=== PATIENT | male | born 1955 | race Caucasian/White ===

== ENCOUNTER 2016-10-13 12:34 | Inpatient (IN) | payer OTHER ==
--- NOTE | ~2016-10-13 | CN ---
Consultation Report [place] [id number] [facility] [place]. [address] NAME: AD MITCHELL : 59 STATUS : ADM IN [facility]#: [id number] AGE: 61 ADM/REG DATE : 10/13/16 MR#: [id number] REPORT SERV DATE: 10/13/16 DICTATED BY: MANOHAR PATIÑO DATE: 10/13/16 REPORT STATUS : Draft TRANSCRIBED BY: MODL DATE: 10/13/16 CARDIOLOGY CONSULTATION DATE OF CONSULTATION: 10/13/2016 REASON FOR CONSULTATION: Pericardial effusion. HISTORY OF PRESENT ILLNESS: Mr. Mitchell is a 61-year-old male with hypertension and diabetes mellitus, who presented to the ER with several weeks of worsening precordial chest pain, cough, and low-grade fevers. These symptoms are following a "tick bite" that occurred several weeks ago. He has been on doxycycline after being seen in a local urgent care clinic. He notes that his chest pain is nearly continuous and worse with certain position changes. This also exacerbates his cough. His cough has been nonproductive. He denies having any symptoms of exertional angina. He does have some constitutional symptoms, generalized fatigue, and malaise. He has had no palpitations or syncope. He denies orthopnea/PND. He does have some mild ankle edema. On arrival to the ER, he had sinus tachycardia at 100 beats per minute and a D-dimer was abnormal. A CT of the chest showed moderate pericardial and pleural effusions with no pulmonary embolism and a normal thoracic aorta. He is being admitted to the Hospitalist Service for further evaluation and management. An echocardiogram has been performed, but is currently pending review. REVIEW OF SYSTEMS: Pertinent positives and negatives are as outlined above, all others negative. PAST MEDICAL HISTORY: 1. Hypertension. 2. Diabetes mellitus type 2. CURRENT MEDICATIONS: 1. Lotrel 10/40 mg daily. 2. Aspirin 81 mg daily. 3. Tessalon Perles. 4. Doxycycline since 10/07/2016. 5. Glipizide as directed. 6. Jentadueto twice daily. 7. Actos 30 mg daily. ALLERGIES: NO KNOWN DRUG ALLERGIES. SOCIAL HISTORY: He does not use tobacco products, consume alcohol, or illegal drugs. FAMILY HISTORY: No significant family history of premature CAD, cardiomyopathy, or sudden . Consultation Report [facility] [address] [facility] [place]. [address] NAME: AD MITCHELL : 59 STATUS : ADM IN [facility]#: [id number] AGE: 61 ADM/REG DATE : 10/13/16 MR#: [id number] REPORT SERV DATE: 10/13/16 DICTATED BY: MANOHAR PATIÑO DATE: 10/13/16 REPORT STATUS : Draft TRANSCRIBED BY: MODAkbar DATE: 10/13/16 PHYSICAL EXAMINATION: VITALS: Temperature is 100, pulse is 100, respirations 18, and blood pressure is 130/70. MENTAL STATUS: Awake, alert, and oriented x3. PSYCH: Euthymic, normal affect. GENERAL: Well appearing and in no distress. HEENT: Sclerae anicteric, mucous membranes moist and without lesions. NECK: No jugular venous distention. No hepatojugular reflux, carotid upstrokes 2+ and symmetric, there are no carotid or subclavian bruit. LUNGS: Clear to auscultation without wheezes, crackles, or rales. CARDIOVASCULAR: Regular with normal S1 and S2, no murmurs, no S3 or S4, no parasternal lift, PMI is nondisplaced and nonsustained. ABDOMEN: Soft and nontender. Bowel sounds positive and normoactive. No hepatomegaly, no masses, no abdominal bruit. PULSES: Radial and dorsalis pedis pulses 2+ and symmetric. EXTREMITIES: Warm with trivial bilateral ankle edema. SKIN: No clubbing or cyanosis, no rashes or lesions. IMPRESSION: 1. Pleuropericarditis. 2. Febrile illness. 3. Cough with dyspnea. 4. Chest pain secondary to pleuropericarditis. 5. Hypertension. 6. Diabetes mellitus type 2. PLAN: Mr. Mitchell appears to have pleuropericarditis in the setting of a febrile illness for the past several weeks following a "tick bite." He is on doxycycline and being seen by Infectious Disease. An echocardiogram has been performed to follow up his pericardial effusion seen on CTA chest, but that is currently pending for review. At this time, recommend proceeding with NSAIDs for pleuropericarditis and we give him Toradol for immediate relief tonight and then twice daily naproxen with GI prophylaxis on pantoprazole. Followup etiology of his current findings with his Internal Medicine and Infectious Disease evaluation that is ongoing. We will follow with you. SHYANNE/KATI Manohar Patiño M.D. / [id number] CC: Christoph Juan II, MD Consultation Report [address] [address] NAME: AD MITCHELL : 59 STATUS : ADM IN PAT#: [id number] AGE: 61 ADM/REG DATE : 10/13/16 MR#: [id number] REPORT SERV DATE: 10/13/16 DICTATED BY: MANOHAR PATIÑO. DATE: 10/13/16 REPORT STATUS : Draft TRANSCRIBED BY: KATI DATE: 10/13/16 Khang Hale M.D.
--- NOTE | ~2016-10-13 | DS ---
Discharge Summary [facility] [address] [place]. [address] NAME: AD MITCHELL : 59 STATUS : ADM IN [facility]#: [id number] AGE: 61 ADM/REG DATE : 10/13/16 MR#: [id number] REPORT SERV DATE: 10/17/16 DICTATED BY: MICKEY DICKEY II DATE: 10/16/16 REPORT STATUS : Draft TRANSCRIBED BY: MODL DATE: 10/16/16 ADMISSION DATE: 10/13/2016 DISCHARGE DATE: 10/16/2016 DISCHARGE DIAGNOSES: 1. Pleural pericarditis of uncertain etiology. 2. Leukocytosis and fever, meeting criteria for sepsis, though no infectious etiology found and also possibly inflammatory. 3. Anemia with elevated ferritin. 4. Diabetes mellitus, type 2. 5. Hypertension. CONSULTS: 1. Dr. Mcgowan with Cardiology. 2. Dr. Vidal with Infectious Disease. BRIEF HISTORY OF PRESENT ILLNESS: The patient is a 61-year-old male with the above history, who presented to [facility] due to chest pain, fever, and cough. For detailed history and physical examination, please see Dr. Santiago's note from 10/13/2016. HOSPITAL COURSE: On admission, the patient had a CTA of the chest, which showed mild cardiomegaly with a moderate pericardial effusion and small to moderate bilateral pleural effusions concerning for either heart failure or autoimmune inflammation. No evidence of pneumonia. Echocardiogram showed mildly decreased left ventricular systolic function with an EF of 45%. No valvular abnormalities and a medium sized circumferential pericardial effusion without evidence of hemodynamic compromise. The patient did have a fever on admission, the low-grade of a 100.4 and 100.5. He was tachycardic in the low 100s and had a white blood cell count of 12. Dr. Vidal and Dr. Mcgowan were consulted due to the fever, effusions, and Dr. Mcgowan with the pericardial effusion. Certainly Dr. Vidal commented the differential could be quite broad and his CRP was 194. At this point, rheumatoid antigen is negative and ANIKA and SPEP as well as an enteroviral panel are pending still. With initiation of Toradol and naproxen, the patient's chest pain and fever has completely resided. Symptomatically, he has improved. Though with fluids, it did appear his left- sided effusion increased slightly. Dr. Vidal did not think that the diagnostic yield of the thoracentesis would be very helpful specially since he is clinically improving, and the patient was not inclined to accept the risk of thoracentesis at this point. Dr. Mcgowan has optimized the patient's medication regimen, decreasing his Lotrel, adding metoprolol and the patient will need to continue the course of naproxen for a total of two weeks. He has been started on Lasix and potassium as well for 2 weeks. He will follow up with Dr. Vidal in two weeks and Dr. Mcgowan in three weeks for further assessment. DISCHARGE MEDICATIONS: 1. Lotrel 5/40 mg p.o. daily. 2. Aspirin 81 mg p.o. daily. 3. Doxycycline 100 mg p.o. b.i.d. 4. Lasix 20 mg p.o. daily. Discharge Summary [address] [address] NAME: AD MITCHELL : 59 STATUS : ADM IN [facility]#: [id number] AGE: 61 ADM/REG DATE : 10/13/16 MR#: [id number] REPORT SERV DATE: 10/17/16 DICTATED BY: MICKEY DICKEY II DATE: 10/16/16 REPORT STATUS : Draft TRANSCRIBED BY: KATI DATE: 10/16/16 5. Guaifenesin 600 mg p.o. t.i.d. p.r.n. congestion. 6. Tessalon 200 mg p.o. t.i.d. p.r.n. cough. 7. Lopressor 25 mg p.o. b.i.d. 8. Naproxen 500 mg p.o. b.i.d. 9. Protonix 40 mg p.o. daily. 10.Potassium chloride 20 mEq p.o. daily. 11.Glucotrol 5 mg p.o. b.i.d. 12.Actos 30 mg p.o. daily. 13.Jentadueto 2.5 mg/1000 mg p.o. b.i.d. DISCHARGE INSTRUCTIONS: The patient will follow with Dr. Vidal in one to two weeks and Dr. Mcgowan in three weeks. DICTATED BY: MD INESSA Zapata II/KATI Mickey Dickey II, MD / [id number] CC: MD Khang Zapata II, M.D.
--- NOTE | ~2016-10-13 | HP ---
History And Physical [facility] [address] [facility] [place]. [address] NAME: AD MITCHELL : 59 STATUS : ADM IN [facility]#: [id number] AGE: 61 ADM/REG DATE : 10/13/16 MR#: [id number] REPORT SERV DATE: 10/13/16 DICTATED BY: JACQUE BLANCHARD DATE: 10/13/16 REPORT STATUS : Draft TRANSCRIBED BY: MODAkbar DATE: 10/13/16 DATE OF ADMISSION: 10/13/2016 CHIEF COMPLAINT: Chest pain as well as intermittent fever and dry cough for two weeks or so. HISTORY OF PRESENT ILLNESS: This is a very pleasant 61-year-old gentleman. He has a history of high blood pressure and also history of diabetes. No other significant past medical history that he has been presenting today to [facility] with an ongoing symptoms of cough and intermittent fever that now is accompanied by pleuritic chest pain mostly with cough as well as with deep breathing. It is very important to note that the patient about weeks or so has been weak according to the patient. He went to his doctor. At that time, he has only his refilled medications. He has not been placed on any medications, but it is also very important to note that according to the patient, his cough actually is dry and nonproductive, started before the tick bite. The patient actually continued to have cough, and he started to experience that pleuritic chest pain. He went again to the doctor. At that time, he saw his nurse practitioner. On the , he actually has been placed on doxycycline who has been continuing to take, but no improvement with symptoms, continues to be weak, continues to cough nonproductive, and his chest pain is pleuropericardial in nature got progressively worse with some shortness of breath and fever. He went again to his doctor. He gave him some Tessalon Perles, but he did not improve, and as a result, he presented today to [facility]. He had some intermittent episodes of hematuria according to him, but he has not had any sick contacts. No recent hospitalization. He does not have contact with birds. He says he works for [employer]. He evaluated in the emergency room, and Hospitalist Service has been asked for admission and evaluation. He did have some diarrhea for a couple of days, but no productive sputum, no hematemesis or melena, no hematochezia, and no other complaints. After evaluation in the emergency room, Hospitalist Service has been asked again for admission, further evaluation and treatment. PAST MEDICAL HISTORY: Significant for diabetes and hypertension. PAST SURGICAL HISTORY: Includes hernia repair and right foot surgery. SOCIAL HISTORY: Denies tobacco, alcohol, or IV drugs. ALLERGIES: HE DOES NOT HAVE ANY DRUG ALLERGIES. FAMILY HISTORY: Significant for heart disease. MEDICATIONS: At home include Lotrel, aspirin, Tessalon, Monodox, Glucotrol, Jentadueto, and Actos. REVIEW OF SYSTEMS: A 14-point review of systems has been obtained and pertinent positive has been listed into the history of present illness. Otherwise, negative except those underlying above. PHYSICAL EXAMINATION: History And Physical [address] [address] NAME: AD MITCHELL : 59 STATUS : ADM IN [facility]#: [id number] AGE: 61 ADM/REG DATE : 10/13/16 MR#: [id number] REPORT SERV DATE: 10/13/16 DICTATED BY: JACQUE BLANCHARD DATE: 10/13/16 REPORT STATUS : Draft TRANSCRIBED BY: KATI DATE: 10/13/16 VITAL SIGNS: Currently, temperature 100.4, blood pressure 132/86, heart rate 103, respiratory rate 16, and saturating 95% on room air. GENERAL: He is a very pleasant, well-developed, well-nourished male, in no acute distress. He is alert and oriented x3. He is nonfocal. He follows all his commands appropriately. HEENT: Show pupils are equal, round, and reactive to light. Extraocular movements intact. NECK: No JVD. No lymphadenopathy. No thyromegaly appreciated. CHEST: Eval shows bilateral air entry. Clear anteroposterior. Decreased breath sounds bibasilarly. No wheezes, crackles, or rhonchi appreciated. CARDIOVASCULAR: Regular rate and rhythm. Slightly tachycardic. S1, S2 positive. No S3, no S4. No murmurs, rubs, or gallops appreciated. ABDOMEN: Soft, positive bowel sounds. Nontender. No guarding. No rebound. EXTREMITIES: No clubbing, cyanosis, or edema. NEUROLOGIC: He is alert and oriented x3. He is nonfocal. He follows all his commands appropriately. LABORATORY DATA: Labs from today include sodium 135, potassium 3.5, chloride 103, CO2 of 26, BUN 13, creatinine 0.70, glucose is 172, troponin I is 0.02. His BNP is 46.1. His lactate is 1.1. White count 12.1, hemoglobin 10.4, hematocrit 30.1, and platelets 342. His INR is 1.2. D-dimer is 443. His chest x-ray, portable, does not show any acute cardiopulmonary abnormalities. His EKG has shown sinus rhythm with PAC and nonspecific ST-T changes. Chest x-ray, portable, performed in the emergency room has shown no acute cardiopulmonary abnormality and CTA of the chest with PE protocol showed a moderate-sized pericardial effusion and small to moderate bilateral pleural effusion. ASSESSMENT AND PLAN: This is a very pleasant 61-year-old gentleman with chest pain and fever: 1. Pleural pericarditis with questionable etiology, questionable viral. I thought that this is bacterial etiology, but we are going to culture him right now. Check on 2D echo and continue his doxycycline. He has a few more days of treatment. I doubt that it may be very well and viral etiology, but we are going to consult Infectious Disease, Dr. Oneil Vidal, for further recommendation as well as Cardiology. We will check an ESR and CRP and await ID for further recommendation regarding any further antibiotic coverage. 2. History of hypertension. We will continue his home medication and provide p.r.n. hydralazine as needed. 3. Moderate pericardial effusion. We are going to check an ESR and CRP. Check a 2D echo. Rule him out for SC by serial cardiac enzymes, serial EKG. Consult Cardiology for further recommendation. 4. Diabetes type 2. We are going to hold all his oral medications. Accu-Cheks q.a.c. and q.h.s. and sliding scale insulin subcutaneously level 2. 5. We are going to provide supportive care, pain control, and nebulizer treatment. We are going to provide reasonable pain and nausea control as well as GI and DVT prophylaxis. That has been discussed extensively with the patient and family. All the questions History And Physical [address] [place]. [address] NAME: AD MITCHELL : 59 STATUS : ADM [facility]#: [id number] AGE: 61 ADM/REG DATE : 10/13/16 MR#: [id number] REPORT SERV DATE: 10/13/16 DICTATED BY: JACQUE BLANCHARD DATE: 10/13/16 REPORT STATUS : Draft TRANSCRIBED BY: KATI DATE: 10/13/16 have been answered in full. Further workup and recommendation pending above. It is worthwhile to note that the patient is going to be followed by Hospitalist Service. CF/KATI Jacque Blanchard M.D. / [id number] CC: MD Khang Zapata II, M.D.
--- NOTE | ~2016-10-13 | CN ---
Consultation Report [facility] [address] [place]. [address] NAME: AD MITCHELL : 59 STATUS : ADM IN PAT#: [id number] AGE: 61 ADM/REG DATE : 10/13/16 MR#: [id number] REPORT SERV DATE: 10/14/16 DICTATED BY: YAO VIDAL DATE: 10/14/16 REPORT STATUS : Draft TRANSCRIBED BY: MODL DATE: 10/14/16 INFECTIOUS DISEASE CONSULTATION DATE OF CONSULTATION: 10/14/2016 REASON FOR CONSULTATION: Pleural pericarditis. HISTORY OF PRESENT ILLNESS: This is a 61-year-old man with a past medical history notable for hypertension and diabetes. He was in his baseline state of health until about three weeks ago when he started developing a bit of a dry cough and then some fevers and then some left-sided chest discomfort. Of note, he had removed a very small tick from his back some days before this. The patient states his fever went as high as 102. He also had some associated sweats. Headache was not a prominent part of his illness. The patient was begun on doxycycline by his primary care physician on 10/07/2016. However, he has continued to have worsening of these symptoms as outlined above along with some associated shortness of breath, and for these reasons, he presented to the emergency department at [facility] yesterday morning and was found to have a temperature of 100.4 and be mildly tachycardic and a white blood cell count of 12,100. The patient underwent further evaluation which included an unremarkable EKG and CTA of the chest, which revealed mild cardiomegaly with moderate pericardial effusion and small to moderate bilateral pleural effusions and some bibasilar atelectasis. In addition, there were some small indeterminate lymph nodes in the hilar region and mediastinum bilaterally. Blood cultures were obtained, and the patient was admitted. I did see him last night initially and discussed the case with Dr. Santiago and Dr. Mcgowan. Since admission, his maximum fever has been 100.5. He feels about the same this morning. He did get Toradol overnight and that helped his pain, but is starting to come back again now. The patient denies any significant headache or weight loss. He denies any nausea, vomiting, diarrhea, or genitourinary symptoms. He denies any specific joint complaints. He has also had no skin rash. PAST MEDICAL HISTORY: As mentioned is notable for hypertension and diabetes. He has had a hernia repair and some left foot surgery from trauma years ago. ALLERGIES: NO KNOWN DRUG ALLERGIES. OUTPATIENT MEDICATIONS: Included Lotrel, baby aspirin, Tessalon Perles, Glucotrol, Jentadueto (linagliptin/metformin) Actos, and the doxycycline. SOCIAL HISTORY: The patient is . He is a nonsmoker and nondrinker. There is a pet dog and pet cat. No other significant animal exposure. 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 He outdoors a lot. No pertinent travel history. No known exposure to tuberculosis. No other pertinent hobbies or exposure history. FAMILY HISTORY: Notable for rheumatoid arthritis in his brother. Consultation Report [address] [place]. [address] NAME: AD MITCHELL : 59 STATUS : ADM IN [facility]#: [id number] AGE: 61 ADM/REG DATE : 10/13/16 MR#: [id number] REPORT SERV DATE: 10/14/16 DICTATED BY: YAO VIDAL DATE: 10/14/16 REPORT STATUS : Draft TRANSCRIBED BY: KATI DATE: 10/14/16 REVIEW OF SYSTEMS: As outlined above. In addition, no easy bleeding or bruising. He does note some occasional cough in the spring and summer time, but no chronic cough. He has had some mild muscle aches with all this. No confusion. No palpitations. The rest of the of the 10-point review of systems is negative. PHYSICAL EXAMINATION: VITAL SIGNS: The patient weighs 114 kg. Fevers as mentioned. Blood pressure 182/57. Pulse 94, it was as high as 103. Respiratory rate 16. GENERAL: This is a very pleasant alert man, in no acute distress. He does cough occasionally. HEAD AND NECK: Extraocular movements are intact. Conjunctivae normal. No petechiae. The oral cavity is clear. No ulcers. No thrush. Neck is supple. No significant cervical or supraclavicular lymphadenopathy. LUNGS: Some coarse breath sounds and a few rhonchi, but overall clear. No rub. CARDIAC: Regular rate and rhythm. Normal S1, S2 without murmur, gallop, or rub. ABDOMEN: Soft, nontender. No organomegaly appreciated. EXTREMITIES: Without significant edema. SKIN: Without rash including at the site of the tick bite on his left back. MUSCULOSKELETAL: Joint exam shows no evidence of synovitis. NEUROLOGIC: Grossly intact. LABORATORY STUDIES: White blood cell count 9.5, hemoglobin 10.1, MCV 89.9, RDW 13.2, platelets 281. Albumin 2.4. Creatinine 0.84. Liver function tests normal. CPK 70. Sedimentation rate 107. Hemoglobin A1c 9.3. Procalcitonin less than 0.05. Glucose on admission was 172. Urinalysis is negative except for dipstick positive blood of a moderate degree. Blood cultures negative to date. Today's chest x-ray shows increased left pleural effusion compared to yesterday's x-ray. The patient had an echocardiogram done yesterday and is interpreted as showing mildly decreased left ventricular function with an estimated ejection fraction of 45% along with a medium-sized circumferential pericardial effusion without evidence of hemodynamic compromise. No valvular abnormalities. IMPRESSION: Pleuropericarditis of unclear etiology with associated fevers, normocytic anemia, sedimentation rate of 107, and ejection fraction of 45%. Obviously, there is a very broad differential diagnosis here. With regard to infectious etiologies, overall I doubt this is secondary to a tick-borne illness. This would be an unusual complication of tick- borne infections. Certainly within the spectrum of Lyme carditis, pericarditis can be seen with an effusion. However, Lyme is very unusual in this [place] the [place], and the rest of his illness is not suggestive of Lyme. His illness is not suggestive of Ehrlichia or [place] spotted fever, otherwise, and this would be a very rare complication of those infections as it would be of Q-fever. Viral etiologies are obviously certainly possible, although his illness seems to be somewhat prolonged at this point, including the fevers. Must consider the possibility of an underlying autoimmune or neoplastic process, particularly with the anemia. Consultation Report [address] [place]. [address] NAME: AD MITCHELL : 59 STATUS : ADM IN [facility]#: [id number] AGE: 61 ADM/REG DATE : 10/13/16 MR#: [id number] REPORT SERV DATE: 10/14/16 DICTATED BY: YAO VIDAL DATE: 10/14/16 REPORT STATUS : Draft TRANSCRIBED BY: KATI DATE: 10/14/16 PLAN: 1. We will finish the empiric course of doxycycline, which would be three more days of therapy. 2. We will check the C-reactive protein along with ANIKA, rheumatoid factor, Q-fever, and Lyme serologies, and acute Coxsackie and echovirus serologies along with a serum protein electrophoresis. 3. Consider thoracentesis to include cytology. NAWAF/KATI Yao Vidal M.D. / [id number] CC: MD Khang Zapata II, M.D.
[2016-10-13 11:13] LABS: BASOPHILS 0.2 %; BASOPHILS ABSOLUTE 0.03 10/3/uL (0.0-0.16); EOSINOPHILS 1.1 %; EOSINOPHILS ABSOLUTE 0.13 10/3/uL (0.0-0.53); IMMATURE GRANULOCYTES 0.2 %; IMMATURE GRANULOCYTES ABSOLUTE 0.03 10/3/uL (0.0-0.11); LYMPHOCYTES 18.1 %; LYMPHOCYTES ABSOLUTE 2.19 10/3/uL (0.67-4.30); MEAN CORPUS HGB CONC 34.6 g/dL (32.0-36.0); MEAN CORPUSCULAR HEMOGLOB 30.5 pg (26.0-34.0); MEAN CORPUSCULAR VOLUME 88.3 fL (80-100); MEAN PLATELET VOLUME 10.3 fL (9.2-13.0); MONOCYTES 11.6 %; NEUTROPHILS 68.8 %; NEUTROPHILS ABSOLUTE 8.31 10/3/uL (2.02-8.40); RBC DISTRIBUTION WIDTH 13.1 % (12.0-16.0)
[2016-10-13 11:15] LABS: HEMATOCRIT 30.1 % (40.0-51.0); HEMOGLOBIN 10.4 g/dL (13.6-17.8); MANUAL DIFF NO %; PLATELET COUNT 342 10/3/uL (150-400); RED CELL COUNT 3.41 10/6/uL (4.7-6.1); WHITE BLOOD CELLS 12.1 10/3/uL (4.5-10.5)
[2016-10-13 11:24] LABS: INTERNATIONAL NORMAL RATI 1.2 UNITS (-); PARTIAL THROMBO TIME 33.7 SEC (22.5-37.2); PROTIME (NOT ORD) 15.3 SEC (12.0-14.5)
[2016-10-13 11:33] LABS: CALCIUM, SERUM 8.7 MG/DL (8.5-10.4); CHEST PAIN PROFILE TAT 0 Hrs 24 Mins; CHLORIDE, SERUM 103 MMOL/L (96-112); CO2 (CARBON DIOXIDE) 26 MMOL/L (24-34); D-DIMER QUANTITATIVE 4.43 ug/mLFEU (< 0.50); GFR AFRICAN AMERICAN 120 ML/MIN (>=60); GFR NON AFRICAN AMERICAN 103 ML/MIN (>=60); GLUCOSE, SERUM 172 MG/DL (60-99); POTASSIUM, SERUM 3.5 MMOL/L (3.5-5.3); SODIUM, SERUM 135 MMOL/L (135-148); TROPONIN I 0.02 NG/ML (<0.05)
[2016-10-13 11:34] LABS: BUN (BLOOD UREA NITROGEN) 13 MG/DL (6-23)
[2016-10-13] MEDS ORDERED: GLUCOTROL5 PO (15:02)
[2016-10-13] MEDS ORDERED: LOTREL1 CA5 PO (15:03)
[2016-10-13] MEDS ORDERED: ACTOS30 PO (15:03)
[2016-10-13] MEDS ORDERED: JENTADUETO 2.51 EAC2 PO (15:03)
[2016-10-13] MEDS ORDERED: MONODOX100 MG PO (15:04)
[2016-10-13] MEDS ORDERED: TESSALON200 MG PO (15:05)
[2016-10-13] MEDS ORDERED: HALF81 PO (15:06)
[2016-10-13 18:39] LABS: FERRITIN 394 NG/ML (26-388); IRON BINDING CAPACITY 200 MCG/DL (250-450); IRON, SERUM 16 MCG/DL (35-150); PHOSPHORUS, SERUM 3.1 MG/DL (2.5-4.5)
[2016-10-13 18:42] LABS: FOLATE 19.8 NG/ML (>5.2)
[2016-10-13 18:53] LABS: ALBUMIN 2.6 G/DL (3.5-5.0); ALKALINE PHOSPHATASE 112 U/L (45-117); DIRECT BILIRUBIN 0.1 MG/DL (0.0-0.4); INDIRECT BILIRUBIN(NOT ORDER) 0.4 MG/DL (0.1-0.9); SGOT(AST) 15 U/L (5-40); SGPT(ALT) 27 U/L (5-65); TOTAL BILIRUBIN 0.5 MG/DL (0-1.2); TOTAL PROTEIN 7.3 G/DL (6.0-8.5)
[2016-10-13 19:41] LABS: PROCALCITONIN < 0.05 ng/mL (<0.5)
[2016-10-13 20:31] LABS: CPK 88 U/L (0-200); TROPONIN I 0.02 NG/ML (<0.05)
[2016-10-13 20:32] LABS: CK-MB < 0.5 NG/ML
[2016-10-13 21:43] LABS: GLYCOHEMOGLOBIN (HbA1c) 9.3 % (4.7-6.1)
[2016-10-13 22:54] LABS: ASCORBIC ACID (UR NOT ORDER) NEG (NEG); BILIRUBIN, URINE NEGATIVE (NEG); KETONE, URINE 20 MG/DL (NEG); LEUKOCYTE ESTERASE(NOT OR NEG (NEG); WBC (NOT ORDERED) (RFLEX) 2 (0-5)
[2016-10-14 03:33] LABS: BASOPHILS 0.2 %; BASOPHILS ABSOLUTE 0.02 10/3/uL (0.0-0.16); EOSINOPHILS 2.9 %; EOSINOPHILS ABSOLUTE 0.28 10/3/uL (0.0-0.53); HEMATOCRIT 30.4 % (40.0-51.0); HEMOGLOBIN 10.1 g/dL (13.6-17.8); IMMATURE GRANULOCYTES 0.2 %; IMMATURE GRANULOCYTES ABSOLUTE 0.02 10/3/uL (0.0-0.11); LYMPHOCYTES 16.5 %; LYMPHOCYTES ABSOLUTE 1.57 10/3/uL (0.67-4.30); MEAN CORPUS HGB CONC 33.2 g/dL (32.0-36.0); MEAN CORPUSCULAR HEMOGLOB 29.9 pg (26.0-34.0); MEAN CORPUSCULAR VOLUME 89.9 fL (80-100); MEAN PLATELET VOLUME 10.4 fL (9.2-13.0); MONOCYTES 11.3 %; MONOCYTES ABSOLUTE 1.08 10/3/uL (0.21-1.20); NEUTROPHILS 68.9 %; NEUTROPHILS ABSOLUTE 6.57 10/3/uL (2.02-8.40); PLATELET COUNT 281 10/3/uL (150-400); RBC DISTRIBUTION WIDTH 13.2 % (12.0-16.0); RED CELL COUNT 3.38 10/6/uL (4.7-6.1); WHITE BLOOD CELLS 9.5 10/3/uL (4.5-10.5)
[2016-10-14 03:36] LABS: MANUAL DIFF NO %
[2016-10-14 03:41] LABS: INTERNATIONAL NORMAL RATI 1.3 UNITS (-)
[2016-10-14 03:54] LABS: A/G RATIO 0.6 (0.7-1.9); ALBUMIN 2.4 G/DL (3.5-5.0); BUN (BLOOD UREA NITROGEN) 11 MG/DL (6-23); CALCIUM, SERUM 8.1 MG/DL (8.5-10.4); CHLORIDE, SERUM 105 MMOL/L (96-112); CO2 (CARBON DIOXIDE) 26 MMOL/L (24-34); CPK 70 U/L (0-200); CREATININE 0.84 MG/DL (0.70-1.30); GFR AFRICAN AMERICAN 111 ML/MIN (>=60); GFR NON AFRICAN AMERICAN 96 ML/MIN (>=60); POTASSIUM, SERUM 3.5 MMOL/L (3.5-5.3); SGOT(AST) 11 U/L (5-40); SGPT(ALT) 19 U/L (5-65); SODIUM, SERUM 137 MMOL/L (135-148); TOTAL BILIRUBIN 0.4 MG/DL (0-1.2); TOTAL PROTEIN 6.4 G/DL (6.0-8.5); TROPONIN I 0.03 NG/ML (<0.05)
[2016-10-14 03:55] LABS: ALKALINE PHOSPHATASE 100 U/L (45-117); CK-MB < 0.5 NG/ML; GLUCOSE, SERUM 264 MG/DL (60-99)
[2016-10-14 11:43] LABS: CPK 79 U/L (0-200); TROPONIN I 0.02 NG/ML (<0.05)
[2016-10-14 11:45] LABS: CK-MB < 0.5 NG/ML
[2016-10-14 11:48] LABS: RHEUMATOID FACTOR QUANT < 10 IU/ML (0-15)
[2016-10-15 05:55] LABS: BASOPHILS 0.2 %; BASOPHILS ABSOLUTE 0.02 10/3/uL (0.0-0.16); EOSINOPHILS 3.7 %; EOSINOPHILS ABSOLUTE 0.38 10/3/uL (0.0-0.53); HEMATOCRIT 30.6 % (40.0-51.0); HEMOGLOBIN 10.4 g/dL (13.6-17.8); IMMATURE GRANULOCYTES 0.3 %; IMMATURE GRANULOCYTES ABSOLUTE 0.03 10/3/uL (0.0-0.11); LYMPHOCYTES 12.8 %; LYMPHOCYTES ABSOLUTE 1.31 10/3/uL (0.67-4.30); MEAN CORPUSCULAR HEMOGLOB 30.1 pg (26.0-34.0); MEAN CORPUSCULAR VOLUME 88.7 fL (80-100); MEAN PLATELET VOLUME 10.3 fL (9.2-13.0); MONOCYTES 12.1 %; MONOCYTES ABSOLUTE 1.24 10/3/uL (0.21-1.20); NEUTROPHILS 70.9 %; NEUTROPHILS ABSOLUTE 7.24 10/3/uL (2.02-8.40); PLATELET COUNT 316 10/3/uL (150-400); RBC DISTRIBUTION WIDTH 13.2 % (12.0-16.0); RED CELL COUNT 3.45 10/6/uL (4.7-6.1); WHITE BLOOD CELLS 10.2 10/3/uL (4.5-10.5)
[2016-10-15 06:00] LABS: MANUAL DIFF NO %
[2016-10-16 07:02] LABS: BASOPHILS 0.3 %; BASOPHILS ABSOLUTE 0.03 10/3/uL (0.0-0.16); EOSINOPHILS 3.3 %; EOSINOPHILS ABSOLUTE 0.35 10/3/uL (0.0-0.53); HEMATOCRIT 33.6 % (40.0-51.0); HEMOGLOBIN 11.4 g/dL (13.6-17.8); IMMATURE GRANULOCYTES 0.2 %; IMMATURE GRANULOCYTES ABSOLUTE 0.02 10/3/uL (0.0-0.11); LYMPHOCYTES 15.7 %; LYMPHOCYTES ABSOLUTE 1.64 10/3/uL (0.67-4.30); MEAN CORPUS HGB CONC 33.9 g/dL (32.0-36.0); MEAN CORPUSCULAR HEMOGLOB 30.1 pg (26.0-34.0); MEAN CORPUSCULAR VOLUME 88.7 fL (80-100); MEAN PLATELET VOLUME 10.2 fL (9.2-13.0); MONOCYTES ABSOLUTE 1.15 10/3/uL (0.21-1.20); NEUTROPHILS 69.5 %; NEUTROPHILS ABSOLUTE 7.27 10/3/uL (2.02-8.40); PLATELET COUNT 409 10/3/uL (150-400); RBC DISTRIBUTION WIDTH 13.1 % (12.0-16.0); RED CELL COUNT 3.79 10/6/uL (4.7-6.1); WHITE BLOOD CELLS 10.5 10/3/uL (4.5-10.5)
[2016-10-16 07:10] LABS: MANUAL DIFF NO %
[2016-10-16 07:15] LABS: BUN (BLOOD UREA NITROGEN) 14 MG/DL (6-23); CALCIUM, SERUM 8.7 MG/DL (8.5-10.4); CHLORIDE, SERUM 104 MMOL/L (96-112); CO2 (CARBON DIOXIDE) 24 MMOL/L (24-34); CREATININE 0.72 MG/DL (0.70-1.30); GFR AFRICAN AMERICAN 118 ML/MIN (>=60); GFR NON AFRICAN AMERICAN 102 ML/MIN (>=60); GLUCOSE, SERUM 228 MG/DL (60-99); POTASSIUM, SERUM 3.4 MMOL/L (3.5-5.3); SODIUM, SERUM 136 MMOL/L (135-148)
[2016-10-16] MEDS ORDERED: PROTONIX PO (18:14)
[2016-10-16] MEDS ORDERED: LOTE40 PO (18:16)
[2016-10-16] MEDS ORDERED: L20 PO (18:18)
[2016-10-16] MEDS ORDERED: KLOR-CON M2020 MEQ PO (18:20)
[2016-10-16] MEDS ORDERED: LOP25 PO (18:21)
[2016-10-16] MEDS ORDERED: NAP500 PO (18:22)
[2016-10-17 09:31] LABS: ANA TITER <1:40 TITER
[2016-10-17 10:29] LABS: A/G 0.79 RATIO (0.9-2.10); ALB RELATIVE % 44.2 % (60.0-89.0); ALBUMIN (ELECTRO) 2.83 GM/DL (3.2-5.5); ALPHA 1 (ELECTRO) 0.36 GM/DL (0.1-0.4); ALPHA 1 RELAT % (NOT ORD) 5.6 % (1.0-4.0); ALPHA 2 (ELECTRO) 1.02 GM/DL (0.5-1.10); ALPHA 2 RELAT % 15.9 % (4.5-26.0); BETA GLOBULIN (SPE) 0.99 GM/DL (0.60-1.30); BETA RELATIVE % 15.4 % (9.0-22.0); GAMMA GLOBULIN (SPE) 1.21 G/DL (0.70-1.60); GAMMA RELAT % 18.9 % (6.0-22.0); T PROTEIN (ELECT)(NOT OR 6.4 G/DL (6.0-8.5)
[2016-10-17 20:29] LABS: LYME AB SCREEN RESULT Negative (NEG)
[2016-10-17 22:48] LABS: ENTEROVIRUS DETECTION BY RT-PC Not Detected (NOTDET); SPECIMEN SOURCE Plasma (())
== END 2016-10-16 19:00 | disposition home or self-care (01) | DRG 872 ==
LOC: ER 12:34 → 7NO 14:55
PROVIDERS: Internal Medicine; Internal Medicine Cardiovascular Disease; Internal Medicine Infectious Disease; Nurse Practitioner Family
DX: A41.9 Sepsis, unspecified organism (principal); I31.9 Disease of pericardium, unspecified; I10 Essential (primary) hypertension; E11.9 Type 2 diabetes mellitus without complications; D64.9 Anemia, unspecified; Z79.82 Long term (current) use of aspirin
CPT/HCPCS: 71010; 71020; 71275; 80048; 80053; 80076; 81001; 82140; 82550; 82553; 82728; 82746; 82962; 83036; 83540; 83550; 83605; 83615; 83735; 83880; 84100; 84145; 84155; 84165; 84484; 85025; 85379; 85610; 85652; 85730; 86039; 86140; 86431; 86618; 86638; 86638-59; 87040; 87498; 93005; 96374; 96375; 99285; A9270-GY; C8929; J0360; J1170; J1885; J2405; Q9957; Q9967